=== PATIENT | male | born 2000 | race Caucasian/White ===

== ENCOUNTER 2023-05-20 16:37 | Emergency (ER) | payer OTHER, SELFPAY ==
[2023-05-20 16:48] VITALS: BP 123/71; PULSE 59; RESP 18; TEMP 36.3; O2SAT 100
[2023-05-20 16:49] VITALS: BP 123/71; PULSE 59; RESP 18; TEMP 36.3; O2SAT 100
--- NOTE | 2023-05-20 17:00 | ED.WOUNDLAC ---
HPI - Wound/Laceration General Chief Complaint: Wound/Laceration Stated Complaint: Cut Lt Hand Source: patient Mode of arrival: ambulatory Limitations: no limitations History of Present Illness HPI narrative: 23-year-old male presents to [facility] with complaints of laceration to the dorsal aspect of his left hand at the base of his left index finger which occurred 30 minutes ago. Patient reports that he was using a pocket knife to cut sausage when he cut his hand. Patient reports his last tetanus shot was 1 year ago. Patient denies bleeding, numbness, tingling or decreased range of motion. Onset (ago): minute(s) (30) Extremity Location: Left: hand Place: home Patient tetanus UTD: Yes Context: accidental Associated symptoms: pain Related Data Home Medications Medication Instructions Recorded Confirmed escitalopram oxalate 10 mg tablet 10 mg DIRECTED 05/20/23 05/20/23 (Lexapro) quetiapine 200 mg tablet,extended 200 mg PO DIRECTED 05/20/23 05/20/23 release 24 hr (Seroquel XR) Allergies Allergy/AdvReac Type Severity Reaction Status Date / Time No Known Allergies Allergy Mild Verified 02/11/10 12:01 Review of Systems Constitutional: Constitutional: Denies chills, Denies fatigue, Denies fever(s) and Denies weakness ENT: Denies dizziness Cardiovascular: Cardiovascular: Denies chest pain Gastrointestinal: Gastrointestinal: Denies diarrhea, Denies nausea and Denies vomiting Integumentary/Breasts: Comments: Laceration to left hand Neurologic: Denies dizziness, Denies syncope and Denies headache(s) PMFSH Family History Family History Mother Family history of thyroid disease Father Family history of elevated blood lipids Family history of sleep apnea Family history of restless legs syndrome Social History Social History Smoking status: Never smoker Comments At time of signature, I agree with nursing past medical, surgical, social and family history. There is no relevant family history pertinent to the presenting complaint. Exam Const: General: healthy appearing and no acute distress Nutritional Appearance: well nourished Orientation/consciousness: patient oriented x3 Limitations: no limitations HENMT: Head: normal to inspection Eyes: Conjunctivae: conjunctivae normal Neck: Neck: normal visual inspection Resp: Effort & Inspection: normal respiratory effort and not labored Auscultation: clear to auscultation bilaterally, no crackles, no rales and no rhonchi Cardio: Rate: regular rate Rhythm: regular rhythm Heart sounds: no murmurs Skin: General skin exam: normal color Wounds: wounds noted left dorsal hand size (2 cm), margins poorly approximated and without odor; no drainage, not malodorous and without any surrounding erythema Other: No active bleeding noted Neuro: General: patient oriented x3 Speech: normal speech Gait exam (Neuro): Normal gait present Extrem: Other: See skin assessment Psych: Affect: normal affect Attitude: cooperative Course Course Level of Care: Express Care Visit Vital Signs Vital signs: Vital Signs Temperature 36.3 C L 05/20/23 16:48 Pulse Rate 59 L 05/20/23 16:48 Respiratory Rate 18 05/20/23 16:48 Blood Pressure 123/71 05/20/23 16:48 Pulse Oximetry 100 05/20/23 16:48 Oxygen Delivery Room Air 05/20/23 16:48 Temperature 36.3 C L 05/20/23 16:49 Pulse Rate 59 L 05/20/23 16:49 Respiratory Rate 18 05/20/23 16:49 Blood Pressure 123/71 05/20/23 16:49 Pulse Oximetry 100 05/20/23 16:49 Oxygen Delivery Room Air 05/20/23 16:49 Procedures Laceration Laceration 1: Date: 05/20/23 Time: 17:04 Site: hand Side (If applicable): left Size (cm): 2 Description: linear and clean Depth: simple, single layer Local Anesthetic: lidoca
== END 2023-05-20 17:47 | disposition home or self-care (01) ==
PROVIDERS: Emergency Provider Nurse Practitioner Family
DX: S61.412A Laceration without foreign body of left hand, initial encounter (principal); W26.0XXA Contact with knife, initial encounter; Y93.G9 Activity, other involving cooking and grilling
CPT/HCPCS: 12001; 99212; G0463

== ENCOUNTER 2023-05-30 16:06 | Emergency (ER) | payer OTHER, SELFPAY ==
[2023-05-30 16:17] VITALS: BP 121/62; PULSE 60; RESP 18; TEMP 37; O2SAT 100
--- NOTE | 2023-05-30 16:24 | ED.WOUNDLAC ---
HPI - Wound/Laceration General Chief Complaint: Wound/Laceration Stated Complaint: Suture Removal Time Seen by Provider: 05/30/23 16:28 Source: patient Mode of arrival: ambulatory Limitations: no limitations History of Present Illness HPI narrative: 23-year-old male presented for suture removal. Patient had 5 sutures placed to the dorsal aspect of the left index finger mcp on 05/20/2023. Denies redness, swelling, pus or streaking. No new concerns. Related Data Home Medications Medication Instructions Recorded Confirmed escitalopram oxalate 10 mg tablet 10 mg DIRECTED 05/20/23 05/30/23 (Lexapro) quetiapine 200 mg tablet,extended 200 mg PO DIRECTED 05/20/23 05/30/23 release 24 hr (Seroquel XR) Allergies Allergy/AdvReac Type Severity Reaction Status Date / Time No Known Allergies Allergy Mild Verified 02/11/10 12:01 Review of Systems Review of Systems: CONSTITUTIONAL: Denies body aches, fever, chills, or sweats. EYES: Denies visual changes, redness, or discharge. ENT: Denies rhinorrhea, congestion CARDIOVASCULAR: Denies chest pain, palpitations, or edema. RESPIRATORY: Denies cough or dyspnea. GASTROINTESTINAL: Denies abdominal pain, nausea, vomiting, or diarrhea. SKIN: 5 sutures to the left hand MUSCULOSKELETAL: Denies back pain, joint pain, or myalgia. NEUROLOGIC: Denies headache, numbness, tingling, or weakness. [facility] Past Medical History Medical History (Updated 05/30/23 @ 16:53 by Tammi Castle APRN) No pertinent past medical history Family History Family History Mother Family history of thyroid disease Father Family history of elevated blood lipids Family history of sleep apnea Family history of restless legs syndrome Social History Social History Smoking status: Never smoker Comments At time of signature, I have reviewed and agree with nursing past medical, surgical, social and family history unless otherwise noted. Please see nursing chart for further information. There is no relevant family history pertinent to the presenting complaint Exam Narrative: GENERAL: Well-appearing HEAD: Normocephalic, atraumatic. EYES: conjunctivae clear, and EOMI. ENT: Mucous membranes moist. Oropharynx without edema, erythema or lesions. NECK: Supple. No lymphadenopathy CHEST: Clear to auscultation. HEART: Regular rate and rhythm. SKIN: Warm, dry. Five sut[address] to the dorsal surface of left hand 2nd mcp joint. No surrounding induration or purulent drainage. NEURO: Alert and oriented x3. Course Course Emergency Course: Patient is aware of diagnosis, understands and agrees to treatment plan. Anticipatory guidance given. Patient agrees to follow-up as directed and is aware of reasons to seek care at the emergency department. Portions of this record may have been created with voice recognition software Level of Care: Express Care Visit Vital Signs Vital signs: Vital Signs Temperature 98.6 F 05/30/23 16:17 Pulse Rate 60 05/30/23 16:17 Respiratory Rate 18 05/30/23 16:17 Blood Pressure 121/62 05/30/23 16:17 Pulse Oximetry 100 05/30/23 16:17 Oxygen Delivery Room Air 05/30/23 16:17 Temperature 98.6 F 05/30/23 16:17 Pulse Rate 60 05/30/23 16:17 Respiratory Rate 18 05/30/23 16:17 Blood Pressure 121/62 05/30/23 16:17 Pulse Oximetry 100 05/30/23 16:17 Oxygen Delivery Room Air 05/30/23 16:17 Reviewed Procedures Other Procedure Procedure 1: Other Procedure: Five sutures removed from the left hand without difficultly, no s/s infection. The wound appeared slightly gaping with flexion of the joint, no bleeding. steri strips applied. Pt tolerated well. MDM - Wound/Laceration MDM Narrative Medical decision making narrative: Five sutures removed from the left hand without difficultly. The wound
== END 2023-05-30 16:56 | disposition home or self-care (01) ==
PROVIDERS: Emergency Provider Nurse Practitioner Family
DX: S61.211D Laceration without foreign body of left index finger without damage to nail, subsequent encounter (principal); X58.XXXD Exposure to other specified factors, subsequent encounter; F31.9 Bipolar disorder, unspecified
CPT/HCPCS: 99211; G0463

== ENCOUNTER 2024-02-16 12:36 | Emergency (ER) | payer OTHER, SELFPAY ==
--- NOTE | 2024-02-16 12:43 | ED.SKABFB ---
HPI - Skin/Abscess/Foreign Bdy General Chief complaint: Skin/Abscess/Foreign Body Stated complaint: Rash Time Seen by Provider: 02/16/24 12:43 Source: patient Mode of arrival: ambulatory Limitations: no limitations History of Present Illness HPI narrative: 23-year-old male presents with complaint of red rash to right antecubital area for 2 days. Complaint of itching. Patient states started after he was out in [place] checking his trail cam rest. Thinks he has poison arthur. In the past has had poison arthur spread to his entire body. Came here for treatment today. All systems reviewed and negative except as noted above. Related Data Home Medications Medication Instructions Recorded Confirmed escitalopram oxalate 10 mg tablet 15 mg DIRECTED 05/20/23 02/16/24 (Lexapro) quetiapine 200 mg tablet,extended 200 mg PO DIRECTED 05/20/23 02/16/24 release 24 hr (Seroquel XR) Allergies Allergy/AdvReac Type Severity Reaction Status Date / Time No Known Allergies Allergy Mild Verified 02/16/24 12:43 Review of Systems Review of Systems: CONSTITUTIONAL: Denies fever, chills, or sweats. EYES: Denies visual changes, redness, or discharge. ENT: Denies rhinorrhea, congestion, sore throat, or otalgia. CARDIOVASCULAR: Denies chest pain, palpitations, or edema. RESPIRATORY: Denies cough or dyspnea. GASTROINTESTINAL: Denies abdominal pain, nausea, vomiting, or diarrhea. GENITOURINARY: Denies dysuria or hematuria. SKIN: Reports rash and itching. MUSCULOSKELETAL: Denies back pain, joint pain, or myalgia. NEUROLOGIC: Denies headache, numbness, or weakness. PSYCHIATRIC: Denies anxiety or depression. All other systems reviewed are negative, except as documented in HPI. [facility] Past Medical History Medical History (Updated 02/16/24 @ 12:50 by Gisel Lozano NP) No pertinent past medical history Family History Family History Mother Family history of thyroid disease Father Family history of elevated blood lipids Family history of sleep apnea Family history of restless legs syndrome Social History Social History Smoking status: Never smoker Comments At time of signature, agree with nursing past medical, surgical, social and family history. There is no relevant family history pertinent to the presenting complaint. Exam Narrative: GENERAL: This is a well-nourished, well-developed patient, in no apparent distress. HEAD: normocephalic, atraumatic. EYES: PERRL. Sclera clear/white. Vision is grossly intact. EARS: External ears normal NOSE: External nose normal NECK: Neck supple, non-tender without lymphadenopathy, masses or thyromegaly. CARDIOVASCULAR: Regular rate and rhythm without murmurs, gallops, or rubs. RESPIRATORY: Clear to auscultation. Breath sounds equal bilaterally. No wheezes, rales, or rhonchi. SKIN: warm, Dry, intact with no suspicious lesions, good texture and turgor. erythematous slightly raised rash to right antecubital with some erythematous vesicular lesions spreading down towards right wrist. NEURO: awake, alert, and oriented to person, place and time. There were no obvious focal neurologic abnormalities. EXTREMITIES: No joint tenderness, effusion, or edema noted. Course Course Level of Care: Express Care Visit Vital Signs Vital signs: Reviewed MDM - Skin/Abscess/Foreign Bdy MDM Narrative Medical decision making narrative: Patient is aware of diagnosis, understands and agrees to treatment plan. Anticipatory guidance given. Patient agrees to follow-up as directed and is aware of reasons to seek care at the emergency department. Portions of this record may have been created with voice recognition software Differential Diagnosis Differential diagnosis: Likely contact dermatitis Discharge Plan Discharge Clinical Impression: Dermatitis due to plants
[2024-02-16 12:44] VITALS: BP 114/66; PULSE 66; RESP 16; TEMP 36.6; O2SAT 100
== END 2024-02-16 12:53 | disposition home or self-care (01) ==
PROVIDERS: Emergency Provider Nurse Practitioner Family
DX: L25.5 Unspecified contact dermatitis due to plants, except food (principal)
CPT/HCPCS: 99213; G0463